=== PATIENT | male | born 1970 | race Caucasian/White ===

== ENCOUNTER 2018-09-17 23:46 | Emergency (ER) | payer MEDICAID, OTHER ==
--- NOTE | 2018-09-17 23:59 | ED Physician Chart ---
ED Chief Complaint/HPI - Patient Information Date Seen:: 09/17/18 Time Seen:: 23:55 Chief Complaint:: cp History of Present Illness:: 48 yr old male with hx of anxiety with lt sided cp lasting 5minutes withe tigtness around lt chest says he may be having panic attack or anxiety takes a baby aspirin pt also very shaky no drugs Allergies:: Allergies Allergy/AdvReac Type Severity Reaction Status Date / Time No Known Allergies Allergy Verified 09/17/18 23:51 ED Review of Systems - Review of Systems General/Constitutional: No fever, No chills, No weight loss, No weakness, No diaphoresis, No edema, No loss of appetite Skin: No skin lesions, No rash, No bruising Head: No headache, No light-headedness Eyes: No loss of vision, No pain, No diplopia ENT: No earache, No nasal drainage, No sore throat, No tinnitus Neck: No neck pain, No swelling, No thyromegaly, No stiffness, No mass noted Cardio Vascular: Chest pain, No palpitations, No PND, No orthopnea, No edema Pulmonary: No SOB, No cough, No sputum, No wheezing GI: No nausea, No vomiting, No diarrhea, No pain, No melena, No hematochezia, No constipation, No hematemesis G/U: No dysuria, No frequency, No hematuria Musculoskeletal: No bone or joint pain, No back pain, No muscle pain Endocrine: No polyuria, No polydipsia Psychiatric: No prior psych history, No depression, No anxiety, No suicidal ideation Hematopoietic: No bruising, No lymphadenopathy Allergic/Immuno: No urticaria, No angioedema Neurological: No syncope, No focal symptoms, No weakness, No paresthesia, No headache, No seizure, No dizziness, No confusion, No vertigo ED Physical Exam - Physical Examination General/Constitutional: Awake, Well-developed, well-nourished, Alert, No distress, GCS 15, Non-toxic appearing, Ambulatory Head: Atraumatic Eyes: Lids, conjuctiva normal, PERRL, EOMI Skin: Nl inspection, No rash, No skin lesions, No ecchymosis, Well hydrated, No lymphadenopathy ENMT: External ears, nose nl, Nasal exam nl, Lips, teeth, gums nl Neck: Nontender, Full ROM w/o pain, No JVD, No nuchal rigidity, No bruit, No mass, No stridor Respiratory: Nl effort/Exclusion, Clear to Auscultation, No Wheeze/Rhonchi/Rales Cardio Vascular: RRR, No murmur, gallop, rubs, NL S1 S2 GI: No tenderness/rebounding/guarding, No organomegaly, No hernia, Normal BS's, Nondistended, No mass/bruits, No McBurney tenderness : No CVA tenderness Extremities: No tenderness or effusion, Full ROM, normal strength in all extremities, No edema, Normal digits & nails Neuro/Psych: Alert/oriented, DTR's symmetric, Normal sensory exam, Normal motor strength, Judgement/insight normal, Mood normal, Normal gait, No focal deficits Misc: Normal back, No paraspinal tenderness ED Assessment - Assessment General Assessment: cp ED Septic Shock - . Is Septic Shock (SBP<90, OR Lactate>4 mmol\L) present?: No ED Reassessment (Disposition) - Reassessment Reassessment Condition:: Improved - Diagnosis Diagnosis:: cp - Aftercare/Follow up Instructions Aftercare/Follow-Up Instructions:: Counseled pt regarding lab results/diagnosis & need follow up - Patient Disposition Discharge/Transfer:: Home Condition at Disposition:: Stable
[2018-09-18] MEDS ORDERED: Sodium Chloride 0.9% 250 ML IV ONE (00:12)
[2018-09-18 00:13] LABS: URINE SOURCE CLEAN C
[2018-09-18] MEDS ORDERED: Morphine Sulfate 2 mg/mL 1mL Syr IV STA (00:14)
[2018-09-18] MEDS ORDERED: Morphine Sulfate 2 mg/mL 1mL Syr ONE (00:17)
[2018-09-18 00:23] LABS: URINE BILIRUBIN NEGATIVE (NEGATIVE); URINE BLOOD NEGATIVE (NEGATIVE); URINE GLUCOSE (UA) NEGATIVE (NEGATIVE); URINE KETONE NEGATIVE (NEGATIVE); URINE LEUKOCYTE ESTERASE NEGATIVE (NEGATIVE); URINE NITRATE NEGATIVE (NEGATIVE); URINE PH 6.5 (4.6 - 8.0); URINE PROTEIN NEGATIVE (NEGATIVE); URINE UROBILINOGEN 0.2 E.U./dL (0.2 - 1.0)
[2018-09-18 00:44] LABS: ALB/GLOB RATIO 1.2 (1.0-1.8); ALBUMIN 4.4 gm/dL (4.2-5.5); ALKALINE PHOSPHATASE 114 U/L (34-104); ANION GAP 13.8 (7.0-16.0); BILIRUBIN,TOTAL 0.4 mg/dL (0.3-1.0); BUN - UREA NITROGEN 20 mg/dL (7-25); CALCIUM SERUM 9.4 mg/dL (8.6-10.3); CARBON DIOXIDE 29.6 mEq/L (21.0-31.0); CHLORIDE 98 mEq/L (98-107); CREATININE - SERUM 1.3 mg/dL (0.7-1.3); CREATININE KINASE 99 U/L (30-223); GFR AFRICAN-AMERICAN > 60.0 ml/min (>90); GFR NON AFRICAN-AMERICAN > 60.0 ml/min; GLUCOSE 111 mg/dL (70-105); POTASSIUM SERUM 3.4 mEq/L (3.5-5.1); SGOT 29 U/L (13-39); SGPT/ALT 37 U/L (7-52); SODIUM SERUM 138 mEq/L (136-145); TOTAL PROTEIN,SERUM 8.2 gm/dL (6.0-8.3)
[2018-09-18 00:58] LABS: % BASOPHILS 0.8 % (0.0-2.0); % EOSINOPHILS 1.5 % (0.0-5.0); % LYMPHOCYTES 47.7 % (20.0-50.0); % MONOCYTES 7.7 % (2.0-10.0); % NEUTROPHILS 42.3 % (40.0-80.0); BASOPHILE ABSOLUTE 0.1 Th/cumm (0-0.2); EOSINOPHILE ABSOLUTE 0.2 Th/cmm (0.1-0.4); HEMATOCRIT 40.6 % (41.0-60); HEMOGLOBIN 12.7 gm/dL (12-16); LYMPHOCYTE ABSOLUTE 4.7 Th/cmm (1.5-3.0); MEAN CORPUSCULAR HEMOGLOBIN 19.2 pg (26.0-30.0); MEAN CORPUSCULAR HGB CONC 31.2 pg (28.0-36.0); MEAN PLATELET VOLUME 11.6 fl; MONOCYTE ABSOLUTE 0.8 Th/cmm (0.3-1.0); NEUTROPHILE ABSOLUTE 4.3 Th/cmm (1.8-8.0); PLATELET COUNT 310 Th/cmm (150-400); RED BLOOD COUNT 6.59 Mil/cmm (4.30-5.70); RED CELL DISTRIBUTION WIDTH 14.4 % (11.5-20.0); URINE CLARITY CLEAR (CLEAR); URINE COLOR COLORLESS; URINE MICROSCOPIC INDICATED? NO; WHITE BLOOD COUNT 10.1 Th/cmm (4.8-10.8)
[2018-09-18] MEDS ORDERED: Potassium Chloride 20 mEq ER Tab PO ONE ×2 (01:07→01:20)
[2018-09-18 01:23] LABS: MEAN CELL VOLUME 60.8 fl (80-99)
[2018-09-18 02:20] LABS: AMPHETAMINE URINE NEGATIVE (NEGATIVE); BARBITURATES URINE NEGATIVE (NEGATIVE); BENZODIAZEPINES QUAL URINE NEGATIVE (NEGATIVE); CANNABINOID THC NEGATIVE (NEGATIVE); COCAINE METABOLITE QUAL URINE NEGATIVE (NEGATIVE); METHADONE URINE NEGATIVE (NEGATIVE); METHAMPHETAMINES QUAL URINE NEGATIVE (NEGATIVE); OPIATES (MORPHINE) QUAL. URINE NEGATIVE (NEGATIVE); PHENCYCLIDINE (PCP) URINE NEGATIVE (NEGATIVE); TRICYCLICS (TCA) QUAL. URINE NEGATIVE (NEGATIVE)
[2018-09-18 02:47] LABS: EOSINOPHIL 2 % (0-5); LYMPHOCYTE 45 % (20-50); MONOCYTE 5 % (2-10); NEUTROPHILS 48 % (40-80)
[2018-09-19] MEDS ORDERED: Aspirin 81mg Chewable Tab ONE (10:31)
[2018-09-19] MEDS ORDERED: NITROGLYCERIN OINT 2% 1 INCH PACKET TP ONE (11:27)
== END 2018-09-18 02:15 | disposition left against medical advice (07) ==
LOC: ER 23:46
DX: R07.89 Other chest pain (principal); F41.9 Anxiety disorder, unspecified
CPT/HCPCS: 99284; 96365; 96375; 93005; 84484; 83880; 36415; 80307; 85007; 85025; 81003; 82550; 80053; J2270; J2060; J2405; 96374; J1885; J7030; Z7502; Z7610

== ENCOUNTER 2018-09-19 09:50 | Emergency (ER) | payer OTHER ==
[2018-09-19] MEDS: Aspirin 81mg Chewable Tab PO STA (10:35)
[2018-09-19 10:48] LABS: HEMATOCRIT 40.4 % (41.0-60); HEMOGLOBIN 12.3 gm/dL (12-16); MEAN CORPUSCULAR HGB CONC 30.4 pg (28.0-36.0); MEAN PLATELET VOLUME 9.9 fl; PLATELET COUNT 314 Th/cmm (150-400); RED BLOOD COUNT 6.57 Mil/cmm (4.30-5.70); RED CELL DISTRIBUTION WIDTH 14.6 % (11.5-20.0); WHITE BLOOD COUNT 10.6 Th/cmm (4.8-10.8)
[2018-09-19 10:59] LABS: ALB/GLOB RATIO 1.1 (1.0-1.8); ALBUMIN 4.2 gm/dL (4.2-5.5); ALKALINE PHOSPHATASE 86 U/L (34-104); ANION GAP 15.4 (7.0-16.0); BILIRUBIN,TOTAL 0.8 mg/dL (0.3-1.0); BUN - UREA NITROGEN 17 mg/dL (7-25); CALCIUM SERUM 9.6 mg/dL (8.6-10.3); CARBON DIOXIDE 27.3 mEq/L (21.0-31.0); CHLORIDE 99 mEq/L (98-107); CHOLESTEROL 142 mg/dL (<200); CREATININE - SERUM 1.2 mg/dL (0.7-1.3); CREATININE KINASE 75 U/L (30-223); GFR AFRICAN-AMERICAN > 60.0 ml/min (>90); GFR NON AFRICAN-AMERICAN > 60.0 ml/min; GLUCOSE 145 mg/dL (70-105); HDL -HIGH DENSITY LIPOPROTEIN 32 mg/dL (23-92); POTASSIUM SERUM 3.7 mEq/L (3.5-5.1); SGOT 20 U/L (13-39); SGPT/ALT 28 U/L (7-52); SODIUM SERUM 138 mEq/L (136-145); TRIGLYCERIDES 147 mg/dL (<150)
[2018-09-19 11:08] LABS: PROTHROMBIN TIME (TEST) 10.4 SECONDS (9.5-11.5)
[2018-09-19 11:12] LABS: AMYLASE SERUM 115 U/L (29-103); LIPASE 12 U/L (11-82)
--- NOTE | 2018-09-19 11:17 | ED Physician Chart ---
ED Chief Complaint/HPI - Patient Information Date Seen:: 09/19/18 Time Seen:: 10:00 Chief Complaint:: Chest Pain History of Present Illness:: onset x 3 days of intermittent, sharp, MS type C/P with left flank pain, N/V x 3 ; pt denies trauma, LOC, ALOC, AMS, H/As, S/T, neck pain, cough, SOB, Abd. Pain , A/D/C, fever, chills, or urinary s/s Allergies:: Allergies Allergy/AdvReac Type Severity Reaction Status Date / Time No Known Allergies Allergy Verified 09/17/18 23:51 Vitals:: Vital Signs - 8 hr 09/19/18 10:03 HR 80 RR 18 BP 178/90 O2 Sat % 97 Historian:: Patient, Family Member Review:: Nurse's Note Reviewed, Old Chart Reviewed ED Review of Systems - Review of Systems General/Constitutional: No fever, No chills, No weight loss, No weakness, No diaphoresis, No edema, No loss of appetite Skin: No skin lesions, No rash, No bruising Head: No headache, No light-headedness Eyes: No loss of vision, No pain, No diplopia ENT: No earache, No nasal drainage, No sore throat, No tinnitus Neck: No neck pain, No swelling, No thyromegaly, No stiffness, No mass noted Cardio Vascular: Chest pain, No palpitations, No PND, No orthopnea, No edema Pulmonary: No SOB, No cough, No sputum, No wheezing GI: Nausea, Vomiting, Diarrhea, No pain, No melena, No hematochezia, No constipation, No hematemesis G/U: No dysuria, No frequency, No hematuria, No nacturia Musculoskeletal: No bone or joint pain, Back pain, No muscle pain Endocrine: No polyuria, No polydipsia Psychiatric: No prior psych history, No depression, No anxiety, No suicidal ideation, No homicidal ideation, No auditory hallucination, No visual hallucination Hematopoietic: No bruising, No lymphadenopathy Allergic/Immuno: No urticaria, No angioedema Neurological: No syncope, No focal symptoms, No weakness, No paresthesia, No headache, No seizure, No dizziness, No confusion, No vertigo ED Past Medical History - Past Medical History Obtainable: Yes Past Medical History: HTN Family History: HTN Social History: Non Smoker, No Alcohol, No Drug Use, Surgical History: other (Elbow Surgery) Psychiatricy History: None Medication: Reviewed Family Medical History - Family Member Mother History Unknown: Yes ED Physical Exam - Physical Examination General/Constitutional: Awake, Well-developed, well-nourished, Alert, No distress, GCS 15, Non-toxic appearing, Ambulatory Head: Atraumatic Eyes: Lids, conjuctiva normal, PERRL, EOMI Skin: Nl inspection, No rash, No skin lesions, No ecchymosis, Well hydrated, No lymphadenopathy ENMT: External ears, nose nl, TM canals nl, Nasal exam nl, Lips, teeth, gums nl , Oropharynx nl, Tonsils nl Neck: Nontender, Full ROM w/o pain, No JVD, No nuchal rigidity, No bruit, No mass, No stridor Respiratory: Nl effort/Exclusion, Clear to Auscultation, No Wheeze/Rhonchi/Rales Cardio Vascular: RRR, No murmur, gallop, rubs, NL S1 S2, Carotid/Femoral/Distal pulses equal bilaterally GI: No tenderness/rebounding/guarding, No organomegaly, No hernia, Normal BS's, Nondistended, No mass/bruits, No McBurney tenderness, Rectum exam nl : No CVA tenderness Extremities: No tenderness or effusion, Full ROM, normal strength in all extremities, No edema, Normal digits & nails Neuro/Psych: Alert/oriented, DTR's symmetric, Normal sensory exam, Normal motor strength, Judgement/insight normal, Mood normal, Normal gait, No focal deficits Misc: Normal back, No paraspinal tenderness ED Labs/Radiology/EKG Results - Lab Results Results: Laboratory Tests 09/19/18 09/19/18 09/19/18 10:30 10:30 10:30 WBC 10.6 RBC 6.57 H Hgb 12.3 Hct 40.4 L MCH 18.7 L MCHC Differential 30.4 RDW 14.6 Plt Count 314 MPV 9.9 Add Manual Diff YES Sodium 138 Potassium 3.7 Chloride 99 Carbon Dioxide 27.3 Anion Gap 15.4 BUN 17 Creatinine 1.2 Est GFR ( Amer) > 60.0 Est GFR (Non-Af Amer) > 60.0 BUN/Creatinine Ratio 14.2 Glucose 145 H Calcium 9.6 Total Bilirubin 0.8 AST 20 ALT 28 Alkaline Phosphatase 86 Creatine Kinase 75 Troponin I B-Natriuretic Peptide 105.0 H Total Protein 8.0 Albumin 4.2 Globulin 3.8 Albumin/Globulin Ratio 1.1 Triglycerides 147 Cholesterol 142 LDL Cholesterol Direct 96 HDL Cholesterol 32 09/19/18 10:30 WBC RBC Hgb Hct MCH MCHC Differential RDW Plt Count MPV Add Manual Diff Sodium Potassium Chloride Carbon Dioxide Anion Gap BUN Creatinine Est GFR ( Amer) Est GFR (Non-Af Amer) BUN/Creatinine Ratio Glucose Calcium Total Bilirubin AST ALT Alkaline Phosphatase Creatine Kinase Troponin I 0.01 B-Natriuretic Peptide Total Protein Albumin Globulin Albumin/Globulin Ratio Triglycerides Cholesterol LDL Cholesterol Direct HDL Cholesterol Comments:: Reviewed - Radiology Results Comments:: + Renal Calculi; mild left Hydronephrosis; CXR: CM - EKG Interpretations EKG Time:: 10:33 Rate & Rhythm: 76; NSR Comments:: LVH; non-specific st-t changes ED Septic Shock - . Is Septic Shock (SBP<90, OR Lactate>4 mmol\L) present?: No - <6hrs of presentation: Vital Signs: Vital Signs - 8 hr 09/19/18 10:03 HR 80 RR 18 BP 178/90 O2 Sat % 97 ED Reassessment (Disposition) - Reassessment Reassessment:: pt tolerated po fluids well in ER; pt deferred admission and pt chose to sign out AMA; pt is asymptomatic upon discharge Reassessment Condition:: Improved - Diagnosis Diagnosis:: Chest Pain; Costochondritis; Hypertension; Angina Pectoris; Flank Pain; N/V/D; AGE; Nephrolithiasis; Hydronephrosis; Hematuria; Pancreatitis; Hyperglycemia - Aftercare/Follow up Instructions Aftercare/Follow-Up Instructions:: Counseled pt regarding lab results/diagnosis & need follow up, Refer to Discharge Instructions, Counseled pt & family regarding lab results/diagnosis & need follow up Medication Prescribed:: Rx: Doxycycline 100mg po bid x 10 days; Urine Strainer; Strain all Urine; Encourage Fluids, especially citric acid juices; Have BP re-checked in one day - Patient Disposition Discharge/Transfer:: Against Medical Advice Condition at Disposition:: Stable, Improved (RTER prn if existing s/s reoccur and/or get worse and/or any other new s/s occur; X-Rays Instructions; ACIs given for all above Dx; Refer to Urologist/Veterinarian/Fluorescent Lighting Model Maker NILE; F/U with PMD in one day or prn; RTER prn if concerned)
[2018-09-19] MEDS: NITROGLYCERIN OINT 2% 1 INCH PACKET TP STA (11:28)
[2018-09-19 11:40] LABS: BAND NEUTROPHILE 1 % (0-10); BASOPHIL 0 % (0-3); EOSINOPHIL 2 % (0-5); LYMPHOCYTE 27 % (20-50); MONOCYTE 5 % (2-10); NEUTROPHILS 66 % (40-80)
[2018-09-19] MEDS: Sodium Chloride 0.9% 1,000 ML IV ONE (11:51)
[2018-09-19 11:59] LABS: URINE SOURCE MIDSTREAM
--- NOTE | 2018-09-19 12:03 | Diagnostic Imaging Report ---
Portable chest x-ray HISTORY: Pain The heart appears generous in size. There is elevation the right hemidiaphragm. No acute focal pulmonary processes. No hilar or mediastinal abnormalities. IMPRESSION: 1. No acute abnormalities 2. Generous heart size.
--- NOTE | 2018-09-19 12:03 | Diagnostic Imaging Report ---
CT scan abdomen and pelvis without intravenous contrast HISTORY: Pain Total DLP equals 615 CTDI equals 10.5 Axial sections were obtained from the xiphoid process down to the pubic symphysis. Liver exhibits a homogeneous parenchyma. No focal lesions. There is a moderate axial hiatal hernia. The spleen appears normal. No focal amenities seen in the region of the pancreas. There is mildly dilated focal dilatation of the splenic artery with atherosclerotic calcification. (1.8 cm). Findings consistent with splenic artery aneurysm. The abdominal aorta exhibits a normal caliber and contour. No aneurysm is seen. The right kidney exhibits several punctate calcifications in the medullary region without hydronephrosis. The left kidney demonstrates mild dilatation/hydronephrosis of the collecting system and mild dilatation of the left ureter. This is associated with an approximate 1 mm calculus just within the lumen of urinary ladder near the ureterovesical junction. No abnormal masses or fluid collections seen within the pelvis. No abnormality seen in the region of the appendix. Degenerative changes seen to the spine. IMPRESSION: 1. Mild left-sided hydronephrosis associated with an approximate 1 mm calculus just within the lumen of the urinary bladder near the ureterovesical junction. Additional small bilateral nonobstructing renal calculi also noted. 2. Hiatal hernia 3. Findings consistent with a splenic artery aneurysm. No abdominal aortic aneurysm identified.
[2018-09-19 12:07] LABS: URINE BILIRUBIN NEGATIVE (NEGATIVE); URINE BLOOD MODERATE (NEGATIVE); URINE GLUCOSE (UA) NEGATIVE (NEGATIVE); URINE KETONE NEGATIVE (NEGATIVE); URINE LEUKOCYTE ESTERASE NEGATIVE (NEGATIVE); URINE MICROSCOPIC INDICATED? YES; URINE NITRATE NEGATIVE (NEGATIVE); URINE PH 7.5 (4.6 - 8.0); URINE PROTEIN NEGATIVE (NEGATIVE); URINE UROBILINOGEN 0.2 E.U./dL (0.2 - 1.0)
[2018-09-19 12:10] LABS: URINE CLARITY HAZY (CLEAR); URINE COLOR YELLOW
[2018-09-19 12:18] LABS: URINE RBC 25-50 /hpf (0-5); URINE WBC 0-2 /hpf (0-5)
[2018-09-19 12:19] LABS: URINE BACTERIA NONE SEEN /hpf (NONE SEEN); URINE EPITHELIAL CELLS OCCASIONAL /lpf (FEW)
[2018-09-19 12:31] LABS: MEAN CELL VOLUME 61.5 fl (80-99); MEAN CORPUSCULAR HEMOGLOBIN 18.7 pg (26.0-30.0)
[2018-09-19] MEDS ORDERED: cefTRIAXone 1 GM in Sodium Chloride 0.9% 50 ML IV ONE (13:02)
== END 2018-09-19 16:40 | disposition left against medical advice (07) ==
LOC: ER 09:50
DX: M94.0 Chondrocostal junction syndrome [Tietze] (principal); I10 Essential (primary) hypertension; K52.9 Noninfective gastroenteritis and colitis, unspecified; I20.9 Angina pectoris, unspecified; K85.90 Acute pancreatitis without necrosis or infection, unspecified; N20.0 Calculus of kidney; N13.30 Unspecified hydronephrosis; R73.9 Hyperglycemia, unspecified; R31.9 Hematuria, unspecified; Z98.890 Other specified postprocedural states
CPT/HCPCS: 99284; 96374; 94760; 93005; 71045; 74176; 84484; 83880; 36415; 85007; 85025; 85610; 87086; 81001; 82150; 82550; 83690; 80053; 80061; J2405; Z7502

== ENCOUNTER 2018-10-18 01:30 | Observation (INO) | payer OTHER ==
[2018-10-18] MEDS ORDERED: Metoprolol tartrate 1 mg/ml 5mL Amp IV STA (01:50)
[2018-10-18] MEDS ORDERED: Metoprolol tartrate 1 mg/ml 5mL Amp IV ONE (01:52)
[2018-10-18 02:04] LABS: % BASOPHILS 0.8 % (0.0-2.0); % EOSINOPHILS 1.8 % (0.0-5.0); % LYMPHOCYTES 45.3 % (20.0-50.0); % MONOCYTES 6.2 % (2.0-10.0); % NEUTROPHILS 45.9 % (40.0-80.0); BASOPHILE ABSOLUTE 0.1 Th/cumm (0-0.2); EOSINOPHILE ABSOLUTE 0.2 Th/cmm (0.1-0.4); HEMATOCRIT 40.2 % (41.0-60); HEMOGLOBIN 12.2 gm/dL (12-16); LYMPHOCYTE ABSOLUTE 3.9 Th/cmm (1.5-3.0); MEAN CORPUSCULAR HEMOGLOBIN 18.4 pg (26.0-30.0); MEAN CORPUSCULAR HGB CONC 30.4 pg (28.0-36.0); MONOCYTE ABSOLUTE 0.5 Th/cmm (0.3-1.0); PLATELET COUNT 261 Th/cmm (150-400); RED BLOOD COUNT 6.65 Mil/cmm (4.30-5.70); RED CELL DISTRIBUTION WIDTH 14.9 % (11.5-20.0); WHITE BLOOD COUNT 8.7 Th/cmm (4.8-10.8)
[2018-10-18 02:09] LABS: MEAN CELL VOLUME 60.5 fl (80-99)
[2018-10-18 02:20] LABS: ALB/GLOB RATIO 1.2 (1.0-1.8); ALBUMIN 4.2 gm/dL (4.2-5.5); ALKALINE PHOSPHATASE 83 U/L (34-104); ANION GAP 13.4 (7.0-16.0); BILIRUBIN,TOTAL 0.5 mg/dL (0.3-1.0); BUN - UREA NITROGEN 19 mg/dL (7-25); CALCIUM SERUM 9.3 mg/dL (8.6-10.3); CARBON DIOXIDE 27.9 mEq/L (21.0-31.0); CHLORIDE 100 mEq/L (98-107); CREATININE - SERUM 1.2 mg/dL (0.7-1.3); GFR AFRICAN-AMERICAN > 60.0 ml/min (>90); GFR NON AFRICAN-AMERICAN > 60.0 ml/min; GLUCOSE 155 mg/dL (70-105); MAGNESIUM 1.9 mg/dL (1.9-2.7); PHOSPHOROUS 3.3 mg/dL (2.5-5.0); POTASSIUM SERUM 3.3 mEq/L (3.5-5.1); SGOT 17 U/L (13-39); SGPT/ALT 17 U/L (7-52); SODIUM SERUM 138 mEq/L (136-145); TOTAL PROTEIN,SERUM 7.7 gm/dL (6.0-8.3)
[2018-10-18 02:21] LABS: PROTHROMBIN TIME (TEST) 10.4 SECONDS (9.5-11.5)
[2018-10-18] MEDS ORDERED: Potassium Chloride 20 mEq ER Tab PO ONE ×2 (02:24→02:25)
[2018-10-18 02:56] LABS: AMPHETAMINE URINE NEGATIVE (NEGATIVE); BARBITURATES URINE NEGATIVE (NEGATIVE); BENZODIAZEPINES QUAL URINE NEGATIVE (NEGATIVE); CANNABINOID THC NEGATIVE (NEGATIVE); COCAINE METABOLITE QUAL URINE NEGATIVE (NEGATIVE); METHADONE URINE NEGATIVE (NEGATIVE); METHAMPHETAMINES QUAL URINE NEGATIVE (NEGATIVE); OPIATES (MORPHINE) QUAL. URINE NEGATIVE (NEGATIVE); PHENCYCLIDINE (PCP) URINE NEGATIVE (NEGATIVE); TRICYCLICS (TCA) QUAL. URINE NEGATIVE (NEGATIVE)
[2018-10-18] MEDS ORDERED: IOHEXOL 350mgI/mL 100mL Bottle IVP ONE (03:04)
--- NOTE | 2018-10-18 03:12 | ED Physician Chart ---
ED Chief Complaint/HPI - Patient Information Date Seen:: 10/18/18 Time Seen:: 01:30 Chief Complaint:: chest pain History of Present Illness:: chest pain in the left pectoralis region in a man who has been told that he has an enlarged heart. He has a h/o HTN, not well controlled. He has never seen a national account executive. He is scheduled for a stress test in the future. He was last seen in this ER for chest pain on 09/18/18. Allergies:: Allergies Allergy/AdvReac Type Severity Reaction Status Date / Time No Known Allergies Allergy Verified 10/18/18 01:45 Vitals:: Vital Signs - 8 hr 10/18/18 10/18/18 10/18/18 01:30 01:55 02:53 Temp 97.3 F HR 127 105 88 RR 20 19 BP 199/121 172/102 166/91 O2 Sat % 96 96 Historian:: Patient Review:: Nurse's Note Reviewed ED Review of Systems - Review of Systems General/Constitutional: No fever, No chills, No weight loss, No weakness, No diaphoresis, No edema, No loss of appetite Skin: No skin lesions, No rash, No bruising Head: No headache, No light-headedness Eyes: No loss of vision, No pain, No diplopia ENT: No earache, No nasal drainage, No sore throat, No tinnitus Neck: No neck pain, No swelling, No thyromegaly, No stiffness, No mass noted Cardio Vascular: Chest pain, No palpitations, No PND, No orthopnea, No edema Pulmonary: No SOB, No cough, No sputum, No wheezing GI: No nausea, No vomiting, No diarrhea, No pain, No melena, No hematochezia, No constipation, No hematemesis G/U: No dysuria, No frequency, No hematuria Musculoskeletal: No bone or joint pain, No back pain, No muscle pain Endocrine: No polyuria, No polydipsia Psychiatric: No prior psych history, No depression, No anxiety, No suicidal ideation Hematopoietic: No bruising, No lymphadenopathy Allergic/Immuno: No urticaria, No angioedema Neurological: No syncope, No focal symptoms, No weakness, No paresthesia, No headache, No seizure, No dizziness, No confusion, No vertigo ED Past Medical History - Past Medical History Obtainable: Yes Past Medical History: HTN, Other (enlarged heart; chest pain on 09/18/18) Family Medical History - Family Member Mother History Unknown: Yes ED Physical Exam - Physical Examination General/Constitutional: Awake, Well-developed, well-nourished, Alert, GCS 15, Non-toxic appearing, Ambulatory Other Gen/Cons comments:: with chest pain of 6 out of 10. Head: Atraumatic Eyes: Lids, conjuctiva normal, PERRL, EOMI Skin: Nl inspection, No rash, No skin lesions, No ecchymosis, Well hydrated, No lymphadenopathy ENMT: External ears, nose nl Neck: Nontender, Full ROM w/o pain, No nuchal rigidity, No stridor Respiratory: Nl effort/Exclusion, Clear to Auscultation, No Wheeze/Rhonchi/Rales Cardio Vascular: RRR, No murmur, gallop, rubs, NL S1 S2 Other Cardio Vascular comments:: pain to palpation in the region of the pectoralis insertion. GI: No tenderness/rebounding/guarding, No organomegaly, No hernia, Normal BS's, Nondistended, No mass/bruits, No McBurney tenderness Extremities: No tenderness or effusion, Full ROM, normal strength in all extremities, No edema, Normal digits & nails Other Extremities comments:: negative Divya's Neuro/Psych: Alert/oriented, Normal sensory exam, Normal motor strength, Judgement/insight normal, Mood normal, No focal deficits Misc: Normal back, No paraspinal tenderness ED Labs/Radiology/EKG Results - Lab Results Results: Laboratory Tests 10/18/18 10/18/18 10/18/18 01:50 01:50 01:50 WBC 8.7 RBC 6.65 H Hgb 12.2 Hct 40.2 L MCV 60.5 L MCH 18.4 L MCHC Differential 30.4 RDW 14.9 Plt Count 261 MPV 10.0 Neutrophils % 45.9 Lymphocytes % 45.3 Monocytes % 6.2 Eosinophils % 1.8 Basophils % 0.8 PT INR PTT (Actin FS) D-Dimer Sodium 138 Potassium 3.3 L Chloride 100 Carbon Dioxide 27.9 Anion Gap 13.4 BUN 19 Creatinine 1.2 Est GFR ( Amer) > 60.0 Est GFR (Non-Af Amer) > 60.0 BUN/Creatinine Ratio 15.8 Glucose 155 H Calcium 9.3 Phosphorus 3.3 Magnesium 1.9 Total Bilirubin 0.5 AST 17 ALT 17 Alkaline Phosphatase 83 Troponin I 0.01 Total Protein 7.7 Albumin 4.2 Globulin 3.5 Albumin/Globulin Ratio 1.2 Urine Opiates Screen Urine Methadone Screen Ur Barbiturates Screen Ur Tricyclics Screen Ur Phencyclidine Scrn Amphetamines Screen U Methamphetamines Scrn U Benzodiazepines Scrn U Cocaine Metab Screen U Cannabinoids Screen 10/18/18 10/18/18 10/18/18 01:50 01:50 02:35 WBC RBC Hgb Hct MCV MCH MCHC Differential RDW Plt Count MPV Neutrophils % Lymphocytes % Monocytes % Eosinophils % Basophils % PT 10.4 INR 1.00 PTT (Actin FS) 22.8 L D-Dimer 613 H Sodium Potassium Chloride Carbon Dioxide Anion Gap BUN Creatinine Est GFR ( Amer) Est GFR (Non-Af Amer) BUN/Creatinine Ratio Glucose Calcium Phosphorus Magnesium Total Bilirubin AST ALT Alkaline Phosphatase Troponin I Total Protein Albumin Globulin Albumin/Globulin Ratio Urine Opiates Screen NEGATIVE Urine Methadone Screen NEGATIVE Ur Barbiturates Screen NEGATIVE Ur Tricyclics Screen NEGATIVE Ur Phencyclidine Scrn NEGATIVE Amphetamines Screen NEGATIVE U Methamphetamines Scrn NEGATIVE U Benzodiazepines Scrn NEGATIVE U Cocaine Metab Screen NEGATIVE U Cannabinoids Screen NEGATIVE ED Assessment - Assessment General Assessment: EKG from 01:43:18 a.m. reveals sinus tachycardia with ST depression in V4 to V6. Flipped t wave in V1. repeat EKG performed after patient received Metoprolol 5 mg IV and heart rate decreased to 80's. EKG from 02:15:19 a.m. reveals normal sinus rhythm with a flipped t wave in I and AVL and V4 to V6. ST depression in V4 to V6. CXR: slightly enlarged heart (by my reading.) ddimer is elevated. will perform a CTAngiogram to r/o a PE. spoke to Renetta, medical case worker, from patient's insurance company. I told her that the patient was not stable for transfer since he has ST depression in the lateral leads with flipped t wave. She approved up to a 48 hour admission for this patient with observation. SHE DID NOT GIVE AN AUTHORIZATION NUMBER AND SHE SAID THAT SHE DID NOT NEED TO GIVE AN AUTHORIZATION NUMBER SINCE IT WAS FOR UP TO A 48 HOUR OBSERVATION. spoke to Dr. Mustapha Cunningham at 4:30 a.m. He will admit the patient to telemetry. ED Septic Shock - . Is Septic Shock (SBP<90, OR Lactate>4 mmol\L) present?: No - <6hrs of presentation: Vital Signs: Vital Signs - 8 hr 10/18/18 10/18/18 10/18/18 01:30 01:55 02:53 Temp 97.3 F HR 127 105 88 RR 20 19 BP 199/121 172/102 166/91 O2 Sat % 96 96 ED Reassessment (Disposition) - Reassessment Reassessment Condition:: Improved - Diagnosis Diagnosis:: Chest pain, resolved with ST depression in the lateral leads Hypertension Hypokalemia Elevated ddimer with no evidence of PE. Incidental splenic artery aneurysm, 2.2 cm in size. - Patient Disposition Discharge/Transfer:: Acute Care w/in this hosp Admitted to:: Telemetry Condition at Disposition:: Stable, Improved
[2018-10-18] MEDS ORDERED: Aspirin 81mg Chewable Tab PO ONE (06:00)
[2018-10-18 06:04] VITALS: BP 146/79
--- NOTE | 2018-10-18 08:47 | Diagnostic Imaging Report ---
CHEST X-RAY: AP view INDICATION: pain COMPARISON: 09/19/2018 FINDINGS: Improving right basal lung markings are noted. No focal consolidation or effusions. Heart size is normal. Old left clavicular fracture is noted. IMPRESSION: Resolved right basal lung markings which may be due to a result atelectasis versus resolving infiltrate.
[2018-10-18] MEDS ORDERED: Aspirin 81mg Chewable Tab PO SCH (09:00)
--- NOTE | 2018-10-18 09:11 | Diagnostic Imaging Report ---
CT Chest PE study Indication: Chest pain, elevated d-dimer Comparison: Chest x-ray on 10/18/[address] abdomen and pelvis on 09/19/2018, Technique: Axial images were obtained from the base of the neck to the upper abdomen, following administration of IV contrast, PE protocol. Multiplanar reconstructions were made. total DLP: 363, CTDI13 FINDINGS: No evidence of mediastinal lymphadenopathy. Hazy soft tissue density seen along the prevascular space probably representing remnant thymic tissue. Evaluation for pulmonary embolus is limited due to suboptimal phase of contrast opacification. No central pulmonary embolus is identified. The ascending aorta measures up to 3 cm. No evidence of an aneurysm. Mild atherosclerosis is noted. The heart size is normal. No pericardial effusion. There is a small hiatal hernia. Incidentally noted is mild gynecomastia. There is elevation of the right hemidiaphragm. Evaluation of the lung alarcon demonstrate mild hypoventilatory and atelectatic changes of the lungs. No focal consolidation or effusions. There is a 2 to 3 mm nodularity of the right upper lobe( image 15, series 6). The upper abdomen demonstrates a splenic artery aneurysm measuring 2.2 x 1.8 cm containing mural thrombus. Peripheral rim of calcification is noted. No surrounding leakage identified. The osseous structures demonstrate no acute abnormalities. IMPRESSION: Suboptimal assessment for pulmonary embolus due to suboptimal phase of contrast opacification. No central pulmonary embolus is identified. Hypoventilatory and atelectatic changes changes with no focal consolidation or effusion. 2 mm nodular density in the right upper lobe nonspecific and may be infectious or inflammatory process. Please correlate with old exams. Consider follow-up if indicated. 2.2 x 1.8 cm splenic artery aneurysm with mural thrombus and peripheral calcification. No evidence of surrounding leakage. Follow-up surveillance is suggested. Small hiatal hernia. Gynecomastia incidentally noted. Hazy density along the prevascular space probably representing remnant thymic tissue. Correlation with old exams to be helpful. No evidence of mediastinal lymphadenopathy.
--- NOTE | 2018-10-18 15:26 | History & Physical ---
ADMIT DATE: 10/18/2018 REASON FOR ADMISSION: Chest pain. HISTORY OF PRESENT ILLNESS: A 48-year-old gentleman who woke up from sleep with dull pain in the left mid axillary line and started shortness of breath, palpitation and shaking of the lower extremities. The patient had a piercing pain left second costochondral area off and on in the past, but this time, pain more dull and lasted up to 10-15 minutes. In the Emergency Room, patient had a normal troponin level, but EKG revealed normal sinus rhythm and T-wave was inverted in lead 4 and 5, so the patient admitted for further workup, cardiac observation and serial EKG and troponin. The patient is currently feeling fine. The patient diagnosed with sleep apnea approximately 1-1/2 years ago and has a CPAP at home, but only using 1-2 times as he feels uncomfortable using it, so never used it on regular basis, go to bathroom every 2 hours at night, only able to sleep on the right side. If he tries to sleep on the back or left side of the body, he wakes up pretty fast due to the sleep apnea. The patient makes a lot of snoring noise and daytime sleepiness is present. Also known history of diabetes mellitus and the patient lost weight and blood sugars start getting better, so currently not on any medications. The patient denies any headache, vision problems, swallowing problem. No fever or chills. No cough or sputum production. No chest pain at present time. No passing out, no palpitation currently, no abdominal pain, nausea, vomiting, diarrhea, melena, no hematuria, no leg swelling or joint swelling, or no rashes. PAST MEDICAL HISTORY: Significant for type 2 diabetes mellitus and obstructive sleep apnea. The patient had multiple ER visits almost the past few months, last being on 09/18/2018. The patient has not seen any product development technician on an outpatient basis. Emergency Room course, patient had a D-dimer done, which was elevated at 613, so CT angio of the chest done, which revealed no PE. FAMILY HISTORY: No premature CAD. HOME MEDICATIONS: Lisinopril 10 mg once a day. PHYSICAL EXAMINATION: GENERAL: Height 1.83 meters, weight 95 kg, BMI 28.5. VITAL SIGNS: Temperature 97.9, afebrile, pulse 70 and regular, respiratory rate 19, blood pressure 145/69, oxygen saturation 95%. HEENT: Unremarkable. NECK: No lymph node. No JVD or bruit. LUNGS: Clear. CARDIOVASCULAR: S1, S2 normal limits. No murmur, gallop or bruit. ABDOMEN: Soft, no hepatosplenomegaly. EXTREMITIES: No leg edema noted. Multiple tattoos all over the body. CENTRAL NERVOUS SYSTEM: Cranial nerves intact, nonfocal. MUSCULOSKELETAL: No clubbing, cyanosis, or synovitis. LABORATORY TESTS: WBC 8.7, hemoglobin 12, MCV 60, platelet count of 261,000, RBCs is 6.65 million. Protime 10, PTT 22. D-dimer 613, normal is up to 400. Sodium 138, potassium 3.3, chloride 100, bicarbonate 27, BUN 19, creatinine 1.2, glucose of 155, calcium 9.3, phosphorus 3.3, magnesium 1.9. Liver panel unremarkable. Troponin x 2 is negative. Liver panel is unremarkable. Thyroid is normal at 3.1. Urine tox screen is negative. EKG is sinus rhythm normal with heart rate of 88, left ventricular hypertrophy is present and T-wave inversion in lead 4 and 5. ASSESSMENT AND PLAN: 1. Chest pain appears atypical with T-wave inversion in lead V4 and V5. We will obtain Cardiology consult, telemetry monitoring, EKG and troponin q. 8 hours x3. Echocardiogram and go from there. 2. Hypertension. We will continue with lisinopril 20 mg once a day. 3. Advised the patient to follow up with outpatient product development technician for further workup as needed. 4. Elevated D-dimer with no PE on CT chest angio. 5. 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 No evidence of surrounding leak. 6. Small hiatal hernia. 7. Gynecomastia. 8. 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 9. Anxiety and panic disorder. PLAN: Discharge home once okay with Cardiology. Advise the patient to follow up with primary care physician and outpatient sleep specialist, use CPAP each night, get a new mask and tubing every 3 months, try different type of masks to get comfortable with it and get psychiatric help for anxiety and panic attack. The patient to take the blood pressure medication on a regular basis and follow up on diabetic with the primary care physician and go from there. [facility]# [id number] MTDD
--- NOTE | 2018-10-18 22:15 | Consultation ---
DATE OF CONSULTATION: 10/18/[address] Mustapha Cunningham. HISTORY OF PRESENT ILLNESS: This is a 48-year-old male patient who has been complaining of pain in the left lateral chest, increased with deep breathing. Following this, the patient was admitted. The patient said he has been admitted at the [facility] and the patient's cardiac evaluation was negative, but the patient had never been able to see cinder snapper as an outpatient. PAST MEDICAL HISTORY: Hypertension. FAMILY HISTORY: Unremarkable. SOCIAL HISTORY: No history of smoking, alcohol abuse. ALLERGIES: None. PHYSICAL EXAMINATION: VITAL SIGNS: Blood pressure 199/120, pulse 70, respirations 20. HEAD: Normocephalic. No lumps or bumps. EYES: Pupils equal, reactive to light. Fundi show AV nicking, sclerae white, conjunctivae pink. NECK: Carotid 2+. Normal upstroke. JVD flat. Thyroid not palpable. Lymph nodes not palpable. CHEST: Shows increased AP diameter. No kyphosis, scoliosis. LUNGS: Bilateral bronchovesicular breath sounds. HEART: PMI fifth intercostal space with lateral to midclavicular line. S1, S2. No S3, S4, soft systolic murmur. ABDOMEN: Soft. Liver, spleen not palpable. No organomegaly. Bowel sounds active. NEUROLOGIC: Unremarkable. EXTREMITIES: Peripheral pulses 2+. No pedal edema. The patient had an echocardiogram, which showed ejection fraction of 58% with mild mitral regurgitation, mild aortic regurgitation, trace tricuspid regurgitation. EKG unremarkable. Troponin levels were normal. CLINICAL IMPRESSION: Atypical chest pain; hypertension, uncontrolled. The patient to have hypertensive medication resumed. JOB# [id number]
--- NOTE | 2018-10-19 15:04 | Cardiology ---
10/18/[address] Mustapha Cunningham. M-MODE ECHOCARDIOGRAM: Mitral valve, anterior leaflet of mitral valve shows normal excursion, EF velocity. Posterior leaflet of the mitral valve shows normal excursion. Left ventricle posterior wall showed normal thickness, excursion. Interventricular septum showed normal thickness, excursion. Ejection fraction 58%. Left atrium normal. Aortic root shows normal dimension, normal excursion of aortic leaflets. CONCLUSION: Normal M-mode echo, ejection fraction 58%. 2D ECHO: Long axis view showed normal sized left ventricle with normal wall motion, mitral valve shows normal excursion. Left atrium normal. Aortic root shows normal dimension, normal excursion of aortic leaflets. Short axis view of mitral valve normal. Short axis view of aortic valve normal. Apical four chamber view showed normal sized left ventricle, left atrium, right ventricle, right atrium, tricuspid and mitral valve. Ejection fraction 58%. CONCLUSION: Normal 2D echo, ejection fraction 58%. Doppler study shows mild mitral regurgitation, mild aortic regurgitation, trace tricuspid regurgitation. [facility]# [id number]
== END 2018-10-18 17:35 | disposition home or self-care (01) ==
LOC: ER 01:30 → TELE 04:30
PROVIDERS: ADMIT Internal Medicine; ATTEND Internal Medicine
DX: R07.89 Other chest pain (principal); I10 Essential (primary) hypertension; R79.1 Abnormal coagulation profile; I72.8 Aneurysm of other specified arteries; K44.9 Diaphragmatic hernia without obstruction or gangrene; N62 Hypertrophy of breast; F41.9 Anxiety disorder, unspecified; F41.0 Panic disorder [episodic paroxysmal anxiety]; E11.9 Type 2 diabetes mellitus without complications; G47.33 Obstructive sleep apnea (adult) (pediatric); E66.09 Other obesity due to excess calories; Z68.28 Body mass index [BMI] 28.0-28.9, adult
CPT/HCPCS: 99284; 96374; 93005 ×4; 71045; 71275; 84484 ×3; 36415; 85379; 80307; 84443; 85025; 85610; 83036; 83735; 84100; 80053; 87081; 99219 ×14; Z7610; Q9967; 90799; G0378; Z7502